=== PATIENT | male | born 1995 | race Caucasian/White ===

== ENCOUNTER 2018-07-08 15:16 | Emergency (ER) | payer OTHER ==
[~2018-07-08] VITALS: Ht 172.7 cm; Wt 73.0 kg
[2018-07-08 16:06] VITALS: Ht 172.7 cm; Wt 73.0 kg
[2018-07-08 19:14] VITALS: BP 122/71
== END 2018-07-08 19:14 | disposition home or self-care (01) ==
LOC: ED 15:16
DX: R19.7 Diarrhea, unspecified (principal); R11.10 Vomiting, unspecified